=== PATIENT | male | born 1975 | race African-American/Black ===

== ENCOUNTER 2025-01-13 23:13 | Emergency (ER) | payer OTHER, SELFPAY | END 2025-01-13 23:40 | disposition home or self-care (01) | LOC: NAV ERS 23:13 | DX: I10 Essential (primary) hypertension (principal); E11.65 Type 2 diabetes mellitus with hyperglycemia; Z79.4 Long term (current) use of insulin | CPT/HCPCS: 36416; 93005; 99283 ==